=== PATIENT | female | born 1995 | race Two or more races ===

== ENCOUNTER 2018-05-17 09:41 | Emergency (ER) | payer OTHER ==
[~2018-05-17] VITALS: Ht 167.6 cm; Wt 63.5 kg
== END 2018-05-17 13:07 | disposition home or self-care (01) ==
LOC: ER 09:41
DX: S93.691A Other sprain of right foot, initial encounter (principal); X50.9XXA Other and unspecified overexertion or strenuous movements or postures, initial encounter; Y93.89 Activity, other specified; Y92.89 Other specified places as the place of occurrence of the external cause; Y99.8 Other external cause status

== ENCOUNTER 2018-08-06 15:35 | Emergency (ER) | payer OTHER ==
[~2018-08-06] VITALS: Ht 167.6 cm; Wt 63.5 kg
== END 2018-08-06 19:49 | disposition home or self-care (01) ==
LOC: ER 15:35
DX: K29.70 Gastritis, unspecified, without bleeding (principal)

== ENCOUNTER → 2021-03-18 | Emergency (ER) | payer OTHER ==
[~2021-03-18] VITALS: Ht 167.6 cm; Wt 63.5 kg
== END | disposition home or self-care (01) ==
LOC: ER 09:41
DX: J03.90 Acute tonsillitis, unspecified (principal)

== ENCOUNTER 2022-08-18 15:30 | Outpatient (CLI) | payer OTHER | END 2022-08-18 15:36 | disposition home or self-care (01) | LOC: RAD 15:30 | PROVIDERS: ATTEND Orthopaedic Surgery | DX: M25.552 Pain in left hip (principal); M25.562 Pain in left knee ==

== ENCOUNTER 2023-01-18 07:59 | Emergency (ER) | payer OTHER ==
[~2023-01-18] VITALS: Ht 167.6 cm; Wt 63.5 kg
[2023-01-18 09:31] LABS: URINE APPEARANCE Clear; URINE BILIRRUBIN Negative (NEGATIVE); URINE BLOOD Negative; URINE COLOR Yellow; URINE GLUCOSE Negative (NEGATIVE); URINE LEUKOCYTE Negative; URINE NITRATE Negative; URINE PROTEIN Negative (NEGATIVE); URINE UROBILINOGEN 0.2 E.U./dl
[2023-01-18 09:35] LABS: HEMATOCRIT 40.1 % (36.0-45.00); HEMOGLOBIN 14.1 g/dL (12.0-15.00); MEAN CELL VOLUME 91.1 fL (80.00-100.00); MEAN CORPUSCULAR HEMOGLOBIN 31.9 pg (27.00-32.0); MEAN CORPUSCULAR HGB CONC 35.1 g/dl (32.0-36.0); PLATELET COUNT 319 K/uL (150-450); RED CELL DISTRIBUTION WIDTH 13.8 % (11.5-14.5)
[2023-01-18 09:36] LABS: URINE BACTERIA 2684.8 uL (0.0-1933); URINE WBC 7.5 uL (0.0-23.2)
[2023-01-18 10:16] LABS: CALCIUM 9.1 mg/dL (8.5-10.1); CREATININE SERUM 0.64 mg/dL (0.55-1.02); GFR 111.31; POTASSIUM 3.96 mEq/L (3.5-5.1)
== END 2023-01-18 12:16 | disposition home or self-care (01) ==
LOC: ER 08:00
PROVIDERS: General Practice
DX: O20.0 Threatened abortion (principal); M19.90 Unspecified osteoarthritis, unspecified site; Z98.890 Other specified postprocedural states; Z20.822 Contact with and (suspected) exposure to COVID-19

== ENCOUNTER 2024-07-11 13:50 | Emergency (ER) | payer OTHER ==
[~2024-07-11] VITALS: Ht 167.6 cm; Wt 72.6 kg
[2024-07-11 16:31] LABS: HEMATOCRIT 40.4 % (36.0-45.00); HEMOGLOBIN 13.5 g/dL (12.0-15.00); MEAN CELL VOLUME 90.2 fL (80.00-100.00); MEAN CORPUSCULAR HEMOGLOBIN 30.2 pg (27.00-32.0); MEAN CORPUSCULAR HGB CONC 33.5 g/dl (32.0-36.0); PLATELET COUNT 381 K/uL (150-450); RED BLOOD COUNT 4.48 M/uL (4.00-6.00); RED CELL DISTRIBUTION WIDTH 13.4 % (11.5-14.5)
[2024-07-11 17:10] LABS: BILIRUBIN TOTAL 0.33 mg/dL (0.3-1.2); CALCIUM 9.2 mg/dL (8.5-10.1); CREATININE SERUM 0.7 mg/dL (0.55-1.02); GFR 99.64; GLOBULINA 3.9 G/DL (2.4-3.5); POTASSIUM 3.65 mEq/L (3.5-5.1); TOTAL PROTEIN 7.9 gm/dL (6.4-8.2)
== END 2024-07-11 18:06 | disposition home or self-care (01) ==
LOC: ER 13:51
DX: R53.81 Other malaise (principal); R42 Dizziness and giddiness

== ENCOUNTER 2024-10-20 10:24 | Emergency (ER) | payer OTHER ==
[~2024-10-20] VITALS: Ht 167.6 cm; Wt 67.1 kg
[2024-10-20] MEDS ORDERED: GUAIFENESIN 200 MG/10 ML BLIST.PACK PO STA (11:33)
[2024-10-20 13:13] LABS: BASO % 0.8 % (0.1-1.2); EOS # 0.04 (0.04-0.54); EOS % 0.5 % (0.7-7.0); LYMPH # 0.47 (1.18-3.74); LYMPH % 6.1 % (19.3-53.1); MEAN PLATELET VOLUME 9.40 fl (9.4-12.4); MONO # 0.87 (0.24-0.82); MONO % 11.3 % (4.7-12.5); NEUT # 6.20 (1.56-6.13); NEUT % 80.8 % (34.0-71.1); RED CELL DISTRIBUTION WIDTH 13.1 % (11.6-14.4)
[2024-10-20 14:41] LABS: COVID-19 AG POSITIVE (NEGATIVE)
== END 2024-10-20 15:23 | disposition home or self-care (01) ==
LOC: ER 10:43
PROVIDERS: Emergency Medicine
DX: U07.1 COVID-19 (principal)

== ENCOUNTER 2025-03-04 12:20 | Emergency (ER) | payer OTHER ==
[~2025-03-04] VITALS: Ht 167.6 cm; Wt 65.8 kg
[2025-03-04] MEDS ORDERED: CEFTRIAXONE SODIUM 1,000 MG VIAL ONE (13:11)
[2025-03-04] MEDS ORDERED: ACETAMINOPHEN 500 MG GEL..CAP PO ONE ×2 (13:11→13:15)
[2025-03-04] MEDS ORDERED: DEXAMETHASONE SODIUM PHOSPHATE 4 MG/ML VIAL ONE (13:11)
[2025-03-04] MEDS ORDERED: GUAIFENESIN 200 MG/10 ML BLIST.PACK PO ONE ×2 (13:12→13:15)
[2025-03-04] MEDS ORDERED: LORATADINE 10 MG/10 ML ML PO ONE (13:15)
[2025-03-04] MEDS ORDERED: DEXAMETHASONE SODIUM PHOSPHATE 4 MG/ML VIAL IV ONE (13:15)
[2025-03-04] MEDS ORDERED: CEFTRIAXONE SODIUM 1,000 MG VIAL IV ONE (13:15)
[2025-03-04 14:13] LABS: BASO % 0.5 % (0.1-1.2); EOS # 0.02 (0.04-0.54); EOS % 0.2 % (0.7-7.0); LYMPH # 0.51 (1.18-3.74); LYMPH % 5.3 % (19.3-53.1); MEAN PLATELET VOLUME 9.20 fl (9.4-12.4); MONO # 0.62 (0.24-0.82); MONO % 6.5 % (4.7-12.5); NEUT # 8.32 (1.56-6.13); NEUT % 87.2 % (34.0-71.1); RED CELL DISTRIBUTION WIDTH 12.6 % (11.6-14.4)
[2025-03-04] MEDS ORDERED: LORATADINE 10 MG TABLET PO ONE (14:15)
[2025-03-04 14:57] LABS: COVID-19 AG NEGATIVE (NEGATIVE)
[2025-03-04] MEDS ORDERED: CETIRIZINE HCL 5MG/5ML BLIST.PACK PO ONE (15:09)
[2025-03-04] MEDS ORDERED: CETIRIZINE HCL 5 MG/5 ML ML PO ONE (15:45)
[2025-03-04] MEDS ORDERED: AZITHROMYCIN500 MG PO (16:59)
[2025-03-04] MEDS ORDERED: BENZONATATE200 M1 PO (16:59)
[2025-03-04] MEDS ORDERED: LEVALBUTER0.63 MG/3 IH (16:59)
[2025-03-04] MEDS ORDERED: ZYRTEC10 MG PO (16:59)
[2025-03-04] MEDS ORDERED: MEDROLPACK PO (16:59)
[2025-03-04] MEDS ORDERED: PEPCID AC20 MG PO (16:59)
[2025-03-04] MEDS ORDERED: SINGULAIR10 MG PO (16:59)
== END 2025-03-04 17:11 | disposition home or self-care (01) ==
LOC: ER 12:20
PROVIDERS: General Practice
DX: J06.9 Acute upper respiratory infection, unspecified (principal); Z20.822 Contact with and (suspected) exposure to COVID-19; Z88.8 Allergy status to other drugs, medicaments and biological substances

== ENCOUNTER 2025-03-05 10:12 | Inpatient (IN) | payer OTHER ==
[~2025-03-05] VITALS: Ht 167.6 cm; Wt 65.8 kg
[~2025-03-05 10:12] MED LIST: AZITHROMYCIN500 MG PO; BENZONATATE200 M1 PO; LEVALBUTER0.63 MG/3 IH; MEDROLPACK PO; PEPCID AC20 MG PO; SINGULAIR10 MG PO; ZYRTEC10 MG PO
[2025-03-05] MEDS ORDERED: IPRATROPIUM BROMIDE 0.5 MG/2.5 ML AMPUL.NEB IH ONE (10:22)
[2025-03-05] MEDS ORDERED: LEVALBUTEROL HCL 1.25 MG/3 ML SOLUTION IH ONE (10:22)
[2025-03-05] MEDS ORDERED: ACETAMINOPHEN 500 MG GEL..CAP PO PRN (10:30)
[2025-03-05] MEDS ORDERED: ONDANSETRON HCL 2 MG/ML VIAL IV ONE (10:30)
[2025-03-05] MEDS ORDERED: METHYLPREDNISOLONE SOD SUCC 125 MG VIAL IV ONE (10:30)
[2025-03-05] MEDS ORDERED: 0.9 % SODIUM CHLORIDE 1,000 ML IV ONE (10:30)
[2025-03-05] MEDS ORDERED: IPRATROPIUM BROMIDE 0.5 MG/2.5 ML AMPUL.NEB IH SCH (10:30)
[2025-03-05] MEDS ORDERED: LORazepam 2 MG/ML VIAL IV ONE (10:30)
[2025-03-05] MEDS ORDERED: LEVALBUTEROL HCL 1.25 MG/3 ML SOLUTION IH SCH (10:30)
[2025-03-05] MEDS ORDERED: FAMOtidine 10 MG/ML (4ML VIAL) IV ONE (10:30)
--- NOTE | 2025-03-05 10:44 | NUR ---
PACIENTE FEMINA, LLEGA A OCTAVIO DE EMERGENCIA CON ASMA SEVERA, SE LE DEEDEE S/V Y SE UBICA PARA SER EVALUADA.
--- NOTE | 2025-03-05 11:38 | NUR ---
PACIENTE ALERTA Y ORIENTADA, ACOMPANADA POR FAMILIAR. SE COLOCA EN GWENDOLYN K1 A NIVEL BAJO CON BARANDAS ELEVADAS. SE REALIZA EKG Y SE CONSULTA CON DRA. BERMUDEZ. SE COLOCA EN MONITOR CARDIACO CONTINUO POR ORDEN MEDICA.
[2025-03-05] MEDS ORDERED: MORPHINE SULFATE 2 MG/ML SYRINGE IV ONE (11:45)
--- NOTE | 2025-03-05 11:53 | NUR ---
AL MOMENTO PACIENTE SE ENCUENTRA ANSIOSA SE INTENTA CANALIZAR EN VARIAS OCACIONES DARREL SE ENCUENTRA COMBATIVA. SE EDUCA SOBRE IMPORTANCIA DE TRATAMIENTO DARREL LA MISMA CONTINUA COMBATIVA.
[2025-03-05] MEDS ORDERED: LORazepam 2 MG/ML VIAL ONE (12:22)
[2025-03-05] MEDS ORDERED: ONDANSETRON HCL 2 MG/ML VIAL ONE (13:03)
[2025-03-05] MEDS ORDERED: ACETAMINOPHEN 500 MG GEL..CAP PO ONE ×2 (13:03→14:05)
[2025-03-05] MEDS ORDERED: METHYLPREDNISOLONE SOD SUCC 125 MG VIAL ONE (13:04)
[2025-03-05] MEDS ORDERED: FAMOTIDINE/PF 20 MG/2 ML VIAL ONE ×2 (13:04→19:37)
--- NOTE | 2025-03-05 13:17 | NUR ---
SE EDUCA A PACIENTE SOBRE PROCEDIMIENTO MEDICO EL CUAL REFIERE ENTENDER, SE COLECTAM MUESTRAS Y SE ADMINISTRA MEDICAMENTOS PENDIENTES,
[2025-03-05 13:22] LABS: BASO % 0.1 % (0.1-1.2); EOS # 0.00 (0.04-0.54); EOS % 0.0 % (0.7-7.0); LYMPH # 0.34 (1.18-3.74); LYMPH % 4.8 % (19.3-53.1); MEAN PLATELET VOLUME 9.50 fl (9.4-12.4); MONO # 0.73 (0.24-0.82); MONO % 10.2 % (4.7-12.5); NEUT # 6.02 (1.56-6.13); NEUT % 84.5 % (34.0-71.1); RED CELL DISTRIBUTION WIDTH 12.9 % (11.6-14.4)
[2025-03-05 13:33] LABS: COVID-19 AG NEGATIVE (NEGATIVE)
[2025-03-05 13:35] LABS: ERYTHROCYTE SEDIMENTATION RATE 18 mm/hr (0-20)
[2025-03-05] MEDS ORDERED: OSELTAMIVIR PHOSPHATE 75 MG CAPSULE PO ONE ×2 (13:45→13:48)
[2025-03-05] MEDS ORDERED: KETOROLAC TROMETHAMINE 30 MG VIAL ONE (14:01)
[2025-03-05 14:08] LABS: D DIMER 0.26 MG/L
[2025-03-05] MEDS ORDERED: KETOROLAC TROMETHAMINE 30 MG VIAL IV ONE (14:15)
[2025-03-05 14:20] LABS: ALT/SGPT 17 U/L (12-78); AST/SGOT 15 U/L (15-37); BILIRUBIN TOTAL 0.23 mg/dL (0.3-1.2); BUN CREA RATIO 12 (7.0-25.0); CREATININE SERUM 0.98 mg/dL (0.55-1.02); GFR 67.10; GLOBULINA 3.9 G/DL (2.4-3.5); GLUCOSE FASTING 104 mg/dL (65-100); OSMOLALITY SERUM 283 MOSM/KG (275-295); PHOSPHOKINASE CREATININE 59 U/L (26-192)
[2025-03-05 14:24] LABS: HCG QUANTITATIVE < 1 mUI/mL (1-3)
[2025-03-05 14:27] LABS: INR 1.13
[2025-03-05] MEDS ORDERED: POTASSIUM BICARBONATE/CIT AC 25 MEQ TABLET.EFF PO ONE (15:45)
[2025-03-05 17:25] LABS: ALT/SGPT 15.0 U/L (12-78); AST/SGOT 16.0 U/L (15-37); BILIRUBIN TOTAL 0.23 mg/dL (0.3-1.2); BUN CREA RATIO 13.0 (7.0-25.0); CREATININE SERUM 0.82 mg/dL (0.55-1.02); GFR 82.42; GLOBULINA 3.0 G/DL (2.4-3.5); GLUCOSE FASTING 129.0 mg/dL (65-100); OSMOLALITY SERUM 280.0 MOSM/KG (275-295)
[2025-03-05] MEDS ORDERED: OSELTAMIVIR PHOSPHATE 75 MG CAPSULE PO SCH (18:12)
[2025-03-05] MEDS ORDERED: CEFTRIAXONE SODIUM 2,000 MG in 0.9 % SODIUM CHLORIDE 100 ML IV SCH (18:13)
[2025-03-05] MEDS ORDERED: ONDANSETRON HCL 4 MG in 0.9 % SODIUM CHLORIDE 50 ML IV PRN (18:15)
[2025-03-05] MEDS ORDERED: POTASSIUM CHLORIDE 20MEQ/100ML H2O PB IV ONE ×2 (18:15→18:32)
[2025-03-05] MEDS ORDERED: ACETAMINOPHEN 325 MG TABLET PO PRN (18:15)
[2025-03-05] MEDS ORDERED: 0.9 % SODIUM CHLORIDE 1,000 ML IV SCH (18:15)
[2025-03-05] MEDS ORDERED: CEFTRIAXONE SODIUM 2,000 MG VIAL ONE (18:32)
[2025-03-05] MEDS ORDERED: FAMOTIDINE/PF 20 MG in 0.9 % SODIUM CHLORIDE 8 ML IV PUSH SCH (18:41)
[2025-03-05 18:55] VITALS: BP 130/80
[2025-03-05] MEDS ORDERED: BENZONATATE 100 MG CAPSULE PO SCH (20:31)
[2025-03-05] MEDS ORDERED: ENOXAPARIN SODIUM 40 MG/0.4 ML SYRINGE SUBCUTANEO ONE (21:50)
[2025-03-05 23:04] VITALS: O2SAT 96
[2025-03-05 23:24] VITALS: BP 100/61; O2SAT 100
[2025-03-06 02:12] VITALS: BP 104/66; O2SAT 98
[2025-03-06 04:29] VITALS: O2SAT 97
[2025-03-06 05:37] VITALS: O2SAT 98
[2025-03-06 06:50] LABS: URINE APPEARANCE Clear; URINE BILIRRUBIN Negative (NEGATIVE); URINE BLOOD Trace; URINE COLOR Dark Yellow; URINE GLUCOSE Negative (NEGATIVE); URINE KETONE Trace (NEGATIVE); URINE LEUKOCYTE Negative; URINE NITRATE Negative; URINE PROTEIN 30 (NEGATIVE); URINE UROBILINOGEN 0.2 E.U./dl
[2025-03-06 06:54] LABS: URINE BACTERIA 74.3 uL (0.0-1933); URINE EPITHELIAL CELLS 22.9 uL (0.0-38.8); URINE RBC 14.9 uL (0.0-20.8); URINE WBC 3.5 uL (0.0-23.2)
[2025-03-06 06:57] LABS: URINE CAST 0.00 uL (0.0-1.40)
[2025-03-06 07:22] LABS: BUN CREA RATIO 22.0 (7.0-25.0); CREATININE SERUM 0.64 mg/dL (0.55-1.02); GFR 109.71; GLUCOSE FASTING 98.0 mg/dL (65-100); OSMOLALITY SERUM 282.0 MOSM/KG (275-295)
[2025-03-06 08:00] VITALS: BP 114/69; O2SAT 98
[2025-03-06 09:26] VITALS: O2SAT 97
[2025-03-06 16:00] VITALS: BP 101/61; O2SAT 99
[2025-03-06] MEDS ORDERED: AZITHROMYCIN 500 MG VIAL IV SCH (17:00)
[2025-03-06] MEDS ORDERED: AZITHROMYCIN 500 MG VIAL IV ONE (17:31)
[2025-03-07] VITALS: BP 96/62; O2SAT 100
[2025-03-07 07:53] LABS: BUN CREA RATIO 19.0 (7.0-25.0); CREATININE SERUM 0.57 mg/dL (0.55-1.02); GFR 125.4; GLUCOSE FASTING 89.0 mg/dL (65-100); OSMOLALITY SERUM 278.0 MOSM/KG (275-295)
[2025-03-07 08:00] VITALS: BP 102/67; O2SAT 97
[2025-03-07 10:51] LABS: BASO % 0.3 % (0.1-1.2); EOS # 0.00 (0.04-0.54); EOS % 0.0 % (0.7-7.0); LYMPH # 0.86 (1.18-3.74); LYMPH % 23.0 % (19.3-53.1); MEAN PLATELET VOLUME 10.30 fl (9.4-12.4); MONO # 0.42 (0.24-0.82); MONO % 11.2 % (4.7-12.5); NEUT # 2.43 (1.56-6.13); NEUT % 65.0 % (34.0-71.1); RED CELL DISTRIBUTION WIDTH 13.0 % (11.6-14.4)
[2025-03-07] MEDS ORDERED: LORATADINE 10 MG TABLET PO NR (12:00)
[2025-03-07] MEDS ORDERED: IPRATROPIUM BROMIDE 0.5 MG/2.5 ML AMPUL.NEB IH NR (12:00)
[2025-03-07] MEDS ORDERED: GUAIFENESIN 200 MG/10 ML BLIST.PACK PO SCH (12:00)
[2025-03-07] MEDS ORDERED: BUDESONIDE 0.5 MG/2 ML AMPUL.NEB IH NR (12:00)
[2025-03-07] MEDS ORDERED: METHYLPREDNISOLONE SOD SUCC 40 MG VIAL IV SCH (13:00)
[2025-03-07 13:51] LABS: COCAINE NEGATIVE (NEGATIVE); METHADONE NEGATIVE (NEGATIVE); OPIATES NEGATIVE (NEGATIVE); THC ( Cannabinoids) NEGATIVE (NEGATIVE)
[2025-03-07 16:27] VITALS: BP 101/65; O2SAT 97
[2025-03-07] MEDS ORDERED: IPRATROPIUM BROMIDE 0.5 MG/2.5 ML AMPUL.NEB IH SCH (17:00)
[2025-03-07] MEDS ORDERED: BUDESONIDE 0.5 MG/2 ML AMPUL.NEB IH SCH (21:00)
[2025-03-08 00:57] VITALS: BP 103/65; O2SAT 98
[2025-03-08] MEDS ORDERED: LORATADINE 10 MG TABLET PO SCH (09:00)
[2025-03-08 09:37] VITALS: BP 107/70; O2SAT 97
[2025-03-08 17:30] VITALS: BP 104/73; O2SAT 100
[2025-03-09] VITALS: BP 111/76; O2SAT 98
[2025-03-09 09:37] VITALS: BP 106/66; O2SAT 98
[2025-03-09 17:07] VITALS: BP 113/75; O2SAT 97
[2025-03-13 00:10] LABS: borde igm 1.4 index (0.0-0.9); bordetella igg 1.45 index (0.00-0.94)
== END 2025-03-09 19:15 | disposition home or self-care (01) | DRG 195 ==
LOC: ER 10:12 → SURH 18:25 → SEC-K 18:25 → MEDJ 18:27 → SURH 23:03
PROVIDERS: General Practice; Internal Medicine; ADMIT Student in an Organized Health Care Education/Training Program; ATTEND Student in an Organized Health Care Education/Training Program
PROC: BB24YZZ Computerized Tomography (CT Scan) of Bilateral Lungs using Other Contrast (ICD-10-PCS; principal; 2025-03-05)
PROC: BW28YZZ Computerized Tomography (CT Scan) of Head using Other Contrast (ICD-10-PCS; 2025-03-05)
PROC: 4A12X4Z Monitoring of Cardiac Electrical Activity, External Approach (ICD-10-PCS; 2025-03-05)
PROC: 3E0F7GC Introduction of Other Therapeutic Substance into Respiratory Tract, Via Natural or Artificial Opening (ICD-10-PCS; 2025-03-07)
DX: J10.1 Influenza due to other identified influenza virus with other respiratory manifestations (principal); R09.02 Hypoxemia; E87.6 Hypokalemia; J98.01 Acute bronchospasm